=== PATIENT | female | born 1960 | race Caucasian/White ===

== ENCOUNTER 2018-02-17 12:32 | Emergency (ER) | payer OTHER ==
[2018-02-17 12:43] VITALS: BP 137/71
[2018-02-17] MEDS: Lidocaine 2% 5 ML SDV INJECT ONE (13:13)
[2018-02-17] MEDS: Bupivacaine 0.25% 10 ML SDV INJECT ONE (13:13)
[2018-02-17] MEDS: Lidocaine 0.5% 50 ML SDV INFILT ONE (13:13)
[2018-02-17] MEDS: Acetaminophen 325 MG Tab PO ONE (13:26)
[2018-02-17] MEDS: Acetaminophen/oxyCODONE 325-5 MG Tab PO ONE (13:26)
[2018-02-17] MEDS: Bacitracin/Neomycin/Polymyxin B Oint 0.9 GM U/D Packet TOP ONE (14:12)
--- NOTE | 2018-02-17 14:22 | EDM.PDOC ---
ED HPI GENERAL MEDICAL PROBLEM - General Chief Complaint: Laceration Stated Complaint: FINGER LACERATION Time Seen by Provider: 02/17/18 12:48 Source of Information: Reports: Patient History Limitations: Reports: No Limitations - History of Present Illness INITIAL COMMENTS - FREE TEXT/NARRATIVE: Patient comes [facility] with injury of left index finger after getting it caught in a food industrial coffee grinder. No other reported injuries. Tetanus is up to date. Treatments SPECIAL POLICE: Reports: Dressing(s) Left 2-Index finger Pain Score (Numeric/FACES): 5 - Related Data Allergies Allergy/AdvReac Type Severity Reaction Status Date / Time acetaminophen AdvReac Lightheaded Verified 02/17/18 12:44 [From Coricidin HBP] ness chlorpheniramine maleate AdvReac Lightheaded Verified 02/17/18 12:44 [From Coricidin HBP] ness dextromethorphan HBr AdvReac Lightheaded Verified 02/17/18 12:44 [From Coricidin HBP] ness guaifenesin AdvReac Lightheaded Verified 02/17/18 12:44 [From Coricidin HBP] ness Home Meds: Home Meds Aspirin [Ecotrin] 81 mg PO DAILY 09/12/13 [History] Citalopram [Citalopram HBr] 40 mg PO DAILY 09/12/13 [History] Fish Oil/[place]-3 Fatty Acids [Fish Oil 1,000 MG] 1 each PO DAILY 09/12/13 [ History] Multivitamin [Multivitamins] 1 each PO DAILY 09/12/13 [History] Propranolol [Inderal LA] 60 mg PO DAILY 09/12/13 [History] Simvastatin [Zocor] 40 mg PO DAILY 09/12/13 [History] Ipratropium [place] [Atrovent] 1 puff ELIZABETH DAILY 07/28/15 [History] Fluticasone Furoate [Flonase Sensimist] 1 spray NS BEDTIME 02/17/18 [History] cephALEXin [Keflex] 500 mg PO Q8H #21 cap 02/17/18 [Rx] traMADol [Ultram] 50 mg PO Q6H PRN #15 tab 02/17/18 [Rx] Past Medical History HEENT History: Reports: Other (See Below) Other HEENT History: frequent sinusitis. Cardiovascular History: Reports: High Cholesterol, Hypertension Psychiatric History: Reports: Anxiety Endocrine/Metabolic History: Reports: Obesity/BMI 30+ Social & Family History - Tobacco Use Smoking Status *Q: Never Smoker - Caffeine Use Caffeine Use: Reports: Coffee - Recreational Drug Use Recreational Drug Use: No Drug Use in Last 12 Months: No - Living Situation & Occupation Occupation: Employed ED ROS GENERAL - Review of Systems Review Of Systems: ROS reveals no pertinent complaints other than HPI. ED EXAM, SKIN/RASH Exam: See Below Exam Limited By: No Limitations General Appearance: Alert, WD/WN, Anxious Eye Exam: Bilateral Eye: EOMI, PERRL Head: Atraumatic, Normocephalic Neck: Supple Respiratory/Chest: No Respiratory Distress Peripheral Pulses: 2+: Radial (L) Extremities: Normal Range of Motion, Other (laceration distal left index finger. 3cm horizontal laceration from edge of finger nail, across pad of finger, to other edge of fingernail noted. Fingernail intact except for small kristina in edge of nail where laceration starts. Mild active bleeding. Distal to this laceration are several karen/cross cuts in the dermis, several have some bleeding. Tendon function intact. Hand is otherwise normal in appearance. No other fingers injured. ) Neurological: Alert, Oriented, Normal Cognition, Normal Gait Psychiatric: Anxious Skin: Warm, Dry, Wound/Incision (see above description) Location, Skin: Upper Extremity, Left ED SKIN PROCEDURES - Laceration/Wound Repair Left Distal Ventral Digit - 2nd (Index) Lac/Wound length In cm: 3 Appearance: Linear Distal NVT: Neuro & Vascular Intact, No Tendon Injury Anesthetic Type: Digital Local Anesthesia - Bupivicaine (Marcaine): Other (Mix of 1cc 0.5% Lidocaine and 4cc 0.25% Marcaine used to inject at base of digit to obtain nerve block) Local Anesthetic Volume: 5cc Skin Prep: Providone-Iodine (Betadine), Isopropyl Alcohol (Alcohol) Exploration/Debridement/Repair: Wound Explored, No Foreign Material Found, Multiple Flaps Aligned Suture Size: other (5.0) # of Sutures: 10 (1 mattress, 9 interrupted) Suture Type: Prolene, Interrupted, Mattress Drain Placement: No Sterile Dressing Applied: Nurse Tetanus Status Addressed: Yes Complications: No Left Distal Digit - 2nd (Index) Lac/Wound length In cm: 1 Appearance: Stellate, Clean Anesthetic Type: Digital Skin Prep: Providone-Iodine (Betadine), Saline Exploration/Debridement/Repair: Wound Explored, No Foreign Material Found, Multiple Flaps Aligned Closed with: Sutures Suture Size: 3-0 # of Sutures: 3 Suture Type: Nylon, Interrupted Drain Placement: No Sterile Dressing Applied: Nurse Tetanus Status Addressed: Yes Complications: No Course - Vital Signs Last Recorded V/S: Last Vital Signs Temp 36.6 C 02/17/18 12:33 Pulse 59 L 02/17/18 12:33 Resp 16 02/17/18 12:33 BP 137/71 02/17/18 12:33 Pulse Ox 95 02/17/18 12:33 - Orders/Labs/Meds Orders: Active Orders 24 hr Category Date Time Status Fingers Second Digit Lt F1 [CR] Stat Exams 02/17/18 12:45 Ordered Meds: Medications Discontinued Medications Generic Name Dose Route Start Last Admin Trade Name Masterq PRN Reason Stop Dose Admin Acetaminophen 325 mg 02/17/18 13:19 02/17/18 13:26 Tylenol PO 02/17/18 13:20 325 mg NOW ONE Administration Bupivacaine HCl 10 ml 02/17/18 13:03 02/17/18 13:13 Sensorcaine-Mpf 0.25% INJECT 02/17/18 13:04 10 ml ONETIME ONE Administration Lidocaine 5 ml 02/17/18 12:55 02/17/18 13:13 Xylocaine-Mpf 2% INJECT 02/17/18 12:56 Not Given ONETIME ONE Lidocaine HCl 5 ml 02/17/18 13:05 02/17/18 13:13 Xylocaine-Mpf 0.5% INFILT 02/17/18 13:06 5 ml ONETIME ONE Administration Neomycin/Polymyxin/Bacitracin 1 each 02/17/18 14:00 02/17/18 14:12 Triple Antibiotic Oint TOP 02/17/18 14:01 1 each ONETIME ONE Administration Oxycodone/Acetaminophen 1 tab 02/17/18 13:18 02/17/18 13:26 Percocet 325-5 Mg PO 02/17/18 13:19 1 tab ONETIME ONE Administration - Re-Assessments/Exams Free Text/Narrative Re-Assessment/Exam: 02/17/18 14:51 Laceration repaired. Wound care and precautions discussed. Dressing applied. To follow up tomorrow afternoon for wound check at 3:30 at [facility]. Tramadol and Keflex Rx given. Xray confirmed small disruption distally at tuft of phalanx. 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 They will direct you as far as additional wound checks next week. Sutures should remain approximately 10 days. Watch for signs of infection and follow up as needed if any concerns or problems develop. - My Orders Last 24 Hours: My Active Orders 02/17/18 12:45 Fingers Second Digit Lt F1 [CR] Stat - Assessment/Plan Last 24 Hours: My Active Orders 02/17/18 12:45 Fingers Second Digit Lt F1 [CR] Stat
== END 2018-02-17 14:50 | disposition home or self-care (01) ==
LOC: LL.ED 12:32
DX: S68.621A Partial traumatic transphalangeal amputation of left index finger, initial encounter (principal); S61.311A Laceration without foreign body of left index finger with damage to nail, initial encounter; I10 Essential (primary) hypertension; E78.00 Pure hypercholesterolemia, unspecified; F41.9 Anxiety disorder, unspecified; Z88.6 Allergy status to analgesic agent; Z88.8 Allergy status to other drugs, medicaments and biological substances; Z79.82 Long term (current) use of aspirin; W31.9XXA Contact with unspecified machinery, initial encounter
CPT/HCPCS: 12002; 73140-F1; 99283; A9270-GY; J3490

== ENCOUNTER 2019-05-18 13:27 | Day surgery (SDC) | payer OTHER ==
[~2019-05-18 13:27] MED LIST: Midazolam 1 MG/ML 2 ML SDV ONE; Propofol 200 MG/20 ML SDV ONE; Sodium Chloride 0.9% 10 ML Syringe FLUSH PRN
[2019-05-18] MEDS: Lactated Ringers 1,000 ML IV SCH (14:45)
[2019-05-18] MEDS ORDERED: Propofol 200 MG/20 ML SDV ONE ×2 (15:10→16:14)
[2019-05-18] MEDS ORDERED: Midazolam 1 MG/ML 2 ML SDV ONE (15:10)
--- NOTE | 2019-05-18 15:12 | PCM.PN ---
- General Info Date of Service: 05/18/19 - Review of Systems Systems Review Comment:: 58-year-old female referred for her initial colonoscopy. She was noted to have a positive colo-guard test. She is medically stable to proceed today. Her recent history and physical is reviewed and no significant changes are noted. She states that her grandmother did have colon cancer later in life. She denies any recent change in bowel pattern. I have discussed the proposed colonoscopy with the patient. Risks such as but not limited to bleeding and GI injury reviewed. She agrees to proceed. - Patient Data Vitals - Most Recent: Last Vital Signs Temp 96.8 F 05/18/19 14:36 Pulse 59 L 05/18/19 14:36 Resp 20 05/18/19 14:36 BP 130/77 05/18/19 14:36 Pulse Ox 99 05/18/19 14:36 Weight - Most Recent: 87.997 kg Med Orders - Current: Current Medications Lactated Ringer's (Ringers, Lactated) 1,000 mls @ 125 mls/hr IV ASDIRECTED HEIKE Last Admin: 05/18/19 14:45 Dose: 125 mls/hr Sodium Chloride (Saline Flush) 10 ml FLUSH ASDIRECTED PRN PRN Reason: Keep Vein Open Discontinued Medications Midazolam HCl (Versed 1 Mg/Ml) Confirm Administered Dose 2 mg .ROUTE .STK-MED ONE Stop: 05/18/19 07:56 Propofol (Diprivan 20 Ml) Confirm Administered Dose 200 mg .ROUTE .STK-MED ONE Stop: 05/18/19 07:56 Sepsis Event Note - Focused Exam Vital Signs: Vital Signs Temp Pulse Resp BP Pulse Ox 05/18/19 14:36 96.8 F 59 L 20 130/77 99 Date Exam was Performed: 05/18/19 Time Exam was Performed: 15:10 - Problem List Review Problem List Initiated/Reviewed/Updated: Yes - Assessment Assessment:: positive colo-guard test - Plan Plan:: colonoscopy
--- NOTE | 2019-05-18 15:55 | PCM.OPNOTE ---
- General Post-Op/Procedure Note Date of Surgery/Procedure: 05/18/19 Operative Procedure(s): Colonoscopy with polypectomy Findings: 2 small transverse colon polyps Colon otherwise appears normal Pre Op Diagnosis: Colon Cancer Screening Post-Op Diagnosis: Colon Polyps Anesthesia Technique: MAC Primary Surgeon: Nick Villasenor Pathology: Colon polyps EBL in mLs: 0 Complications: None Condition: Good
--- NOTE | 2019-05-18 16:33 | OR ---
Date of Procedure: 05/18/2019 PREOPERATIVE DIAGNOSIS: Colon cancer screening. POSTOPERATIVE DIAGNOSIS: Colon polyps. OPERATIONS PERFORMED: Colonoscopy with polypectomy. INDICATIONS FOR SURGERY: This 58-year-old female comes today for her initial screening colonoscopy. She was noted to have a positive Cologuard test. FINDINGS: Two small polyps were noted in the transverse colon. These were each 6 to 7 mm in size. They are sessile in configuration. The remainder of the colon appears normal. DESCRIPTION OF PROCEDURE: The patient was taken to the operating room. She was given intravenous sedation, and with her in the left lateral decubitus position, digital rectal exam was performed showing no rectal masses. The Olympus colonoscope was inserted into the rectum. Retroflexed examination of the rectal canal was performed. The scope was then carefully advanced through the entire length of the colon until the cecum was reached. The colon was somewhat tortuous, but with careful persistent manipulation, the cecum was able to be reached and cecal identity is confirmed by viewing the normal internal cecal anatomy including the appendiceal orifice and ileocecal valve. After examining the cecum, the scope was slowly withdrawn sequentially re-examining the colonic segments. In the transverse colon, a cluster of 2 above-described polyps were identified. Each of these were removed with a cautery snare and retrieved. Examination was then continued until the entire colon and rectum had been fully examined. The scope was removed and the patient was taken from the operating room in satisfactory condition. ESTIMATED BLOOD LOSS: 0. COMPLICATIONS: None. PROGNOSIS: Good. PETER Villasenor MD /[id number]
[2019-05-18 17:47] VITALS: BP 132/75; PULSE 58
== END 2019-05-18 16:50 | disposition home or self-care (01) ==
LOC: LL.SDS 13:27
PROVIDERS: ATTEND Surgery
DX: D12.3 Benign neoplasm of transverse colon (principal); Q43.8 Other specified congenital malformations of intestine; I10 Essential (primary) hypertension; J01.41 Acute recurrent pansinusitis; F32.9 Major depressive disorder, single episode, unspecified; F41.9 Anxiety disorder, unspecified; E78.5 Hyperlipidemia, unspecified; Z79.899 Other long term (current) drug therapy; Z79.1 Long term (current) use of non-steroidal anti-inflammatories (NSAID); Z79.82 Long term (current) use of aspirin; Z88.8 Allergy status to other drugs, medicaments and biological substances
CPT/HCPCS: J2250; J2704; J7120

== ENCOUNTER 2022-08-27 22:22 | Emergency (ER) | payer OTHER ==
[2022-08-27 22:27] VITALS: BP 148/77; PULSE 86
[2022-08-27] MEDS ORDERED: Acetaminophen 500 MG Tab PO ONE (23:03)
== END 2022-08-27 23:35 | disposition home or self-care (01) ==
LOC: LL.ED 22:22
DX: S00.83XA Contusion of other part of head, initial encounter (principal); U07.1 COVID-19; Z79.82 Long term (current) use of aspirin; W00.0XXA Fall on same level due to ice and snow, initial encounter
CPT/HCPCS: 99283; A9270

== ENCOUNTER 2023-04-15 10:06 | Day surgery (SDC) | payer OTHER ==
[~2023-04-15 10:06] MED LIST changes: -Sodium Chloride 0.9% 10 ML Syringe FLUSH PRN
[2023-04-15] MEDS ORDERED: Sodium Chloride 0.9% 10 ML Syringe FLUSH PRN (10:15)
[2023-04-15] MEDS: Lactated Ringers 1,000 ML IV SCH (10:44)
[2023-04-15 12:50] VITALS: BP 124/69; PULSE 56
== END 2023-04-15 13:25 | disposition home or self-care (01) ==
LOC: LL.SDS 10:06
PROVIDERS: ATTEND Surgery
DX: Z12.11 Encounter for screening for malignant neoplasm of colon (principal); D12.3 Benign neoplasm of transverse colon; I10 Essential (primary) hypertension; F33.0 Major depressive disorder, recurrent, mild; R25.1 Tremor, unspecified; F41.9 Anxiety disorder, unspecified; Z86.010 Personal history of colon polyps; Z79.82 Long term (current) use of aspirin; Z79.899 Other long term (current) drug therapy
CPT/HCPCS: 45385; J7120; J2250; J2704